=== PATIENT | male | born 1970 | race Two or more races ===

== ENCOUNTER 2022-11-21 08:48 | Emergency (ER) | payer OTHER ==
[~2022-11-21] VITALS: Ht 175.3 cm; Wt 72.6 kg
== END 2022-11-21 10:09 | disposition home or self-care (01) ==
LOC: ER 08:48
DX: M25.562 Pain in left knee (principal); Z88.0 Allergy status to penicillin; Z91.040 Latex allergy status; Z91.013 Allergy to seafood

== ENCOUNTER 2022-11-26 10:33 | Outpatient (CLI) | payer OTHER | END 2022-11-26 10:53 | disposition home or self-care (01) | LOC: MRI 10:33 | DX: M25.562 Pain in left knee (principal) | CPT/HCPCS: 73721 ==

== ENCOUNTER 2022-12-10 07:16 | Outpatient (CLI) | payer OTHER | END 2022-12-10 07:19 | disposition home or self-care (01) | LOC: RAD 07:16 | PROVIDERS: ATTEND Orthopaedic Surgery Sports Medicine | DX: Z01.810 Encounter for preprocedural cardiovascular examination (principal) ==

== ENCOUNTER 2022-12-10 08:09 | Outpatient (CLI) | payer OTHER ==
[2022-12-10 09:19] LABS: HEMATOCRIT 52.2 % (39.0-48.0); HEMOGLOBIN 17.3 g/dL (13-16.00); MEAN CELL VOLUME 91.8 fL (80.0-100.00); MEAN CORPUSCULAR HEMOGLOBIN 30.4 pg (27.00-32.0); MEAN CORPUSCULAR HGB CONC 33.1 g/dl (32.0-36.0); PLATELET COUNT 257 K/uL (150-450); RED BLOOD COUNT 5.69 M/uL (4.00-6.00); RED CELL DISTRIBUTION WIDTH 12.9 % (11.5-14.5)
[2022-12-10 10:01] LABS: CALCIUM 9.5 mg/dL (8.5-10.1); CREATININE SERUM 1.01 mg/dL (0.70-1.30); GFR 78.19; POTASSIUM 3.81 mEq/L (3.5-5.1)
== END 2022-12-10 08:10 | disposition home or self-care (01) ==
LOC: LAB 08:09
PROVIDERS: ATTEND Orthopaedic Surgery Sports Medicine
DX: Z01.812 Encounter for preprocedural laboratory examination (principal)

== ENCOUNTER 2023-10-27 09:02 | Outpatient (CLI) | payer OTHER | END 2023-10-27 09:16 | disposition home or self-care (01) | LOC: MRI 09:02 | PROVIDERS: ATTEND Orthopaedic Surgery Sports Medicine | DX: M25.561 Pain in right knee (principal) | CPT/HCPCS: 73721 ==

== ENCOUNTER 2023-12-08 09:43 | Outpatient (CLI) | payer OTHER ==
[2023-12-08 10:21] LABS: PH,URINE 6.5 (5.0-8.0); URINE APPEARANCE Clear; URINE BILIRRUBIN Negative (NEGATIVE); URINE COLOR Yellow; URINE GLUCOSE Negative (NEGATIVE); URINE KETONE Negative (NEGATIVE); URINE LEUKOCYTE Negative; URINE NITRATE Negative; URINE PROTEIN Trace (NEGATIVE)
[2023-12-08 10:23] LABS: URINE EPITHELIAL CELLS 5.5 uL (0.0-38.8); URINE WBC 2.3 uL (0.0-23.2)
[2023-12-08 10:43] LABS: HEMATOCRIT 47.7 % (39.0-48.0); HEMOGLOBIN 16.3 g/dL (13-16.00); MEAN CELL VOLUME 90.2 fL (80.0-100.00); MEAN CORPUSCULAR HEMOGLOBIN 30.8 pg (27.00-32.0); MEAN CORPUSCULAR HGB CONC 34.1 g/dl (32.0-36.0); PLATELET COUNT 228 K/uL (150-450); RED BLOOD COUNT 5.29 M/uL (4.00-6.00); RED CELL DISTRIBUTION WIDTH 13.7 % (11.5-14.5); URINE BLOOD TRACES; URINE CAST 0.61 uL (0.0-1.40)
[2023-12-08 11:21] LABS: ERYTHROCYTE SEDIMENTATION RATE 5 mm/hr
[2023-12-08 11:30] LABS: ALBUMIN 3.7 gm/dL (3.4-5.0); BILIRUBIN TOTAL 1.12 mg/dL (0.3-1.2); CALCIUM 8.8 mg/dL (8.5-10.1); CHOL HDL RATIO 3.8 (0-5.0); CREATININE SERUM 0.96 mg/dL (0.70-1.30); FERRITIN 34.7 NG/ML (26-388); GFR 82.58; GLOBULINA 3.4 G/DL (2.4-3.5); POTASSIUM 4.15 mEq/L (3.5-5.1); PROSTATIC SPECIFIC ANTIGEN 0.323 NG/ML (0.010-4.00); TOTAL PROTEIN 7.1 gm/dL (6.4-8.2); TSH 0.969 uIU/mL (0.358-3.74)
[2023-12-08 14:45] LABS: VITAMIN D3 25 HYDROXY 34.56 ng/ml (30-120)
== END 2023-12-08 09:53 | disposition home or self-care (01) ==
LOC: LAB 09:43
DX: E78.5 Hyperlipidemia, unspecified (principal); I10 Essential (primary) hypertension; E03.9 Hypothyroidism, unspecified; E55.9 Vitamin D deficiency, unspecified